=== PATIENT | male | born 1995 | race Caucasian/White ===

== ENCOUNTER 2020-11-11 15:27 | Emergency (ER) | payer MEDICAID ==
[~2020-11-11] VITALS: Ht 170.2 cm; Wt 55.3 kg
[2020-11-11 15:53] VITALS: BP 109/67
--- NOTE | 2020-11-11 15:57 | NUR ---
JASPER. HANDED ON URINE CUP.
[2020-11-11] MEDS ORDERED: NACL 0.9% 1,000 ML IV ONE (16:10)
[2020-11-11] MEDS ORDERED: MORPHINE SULFATE 4 MG/ML SYR IVP ONE ×2 (16:10→17:10)
[2020-11-11] MEDS ORDERED: ONDANSETRON 4 MG/2 ML VIAL IVP ONE (16:10)
--- NOTE | 2020-11-11 16:10 | NUR ---
US BEDSIDE WITH PT
--- NOTE | 2020-11-11 16:15 | NUR ---
Patient wheelchair assisted to bed 10 at this time.
--- NOTE | 2020-11-11 16:35 | NUR ---
25 y/o M BIB from home by mother c/c mid abdominal and RLQ pain since 10AM this morning. Patient A&Ox4, ambulatory, reports low abdominal pain, 10/10, bloating/constant, radiating to RLQ region. Patient states acute onset of pain and denies trauma, injury, fall. Patient states associated nausea and vomiting x 2 episodes today. Denies hemaemesis, loss of apetite, fever, chills, back pain, dysuria, urinary symptoms. Last BM today normal. Pt states OTC Pepto Bismo and Gas X without relief. VSS; respirations even/unlabored. Bed locked in lowest position, side rails x 1, call light in reach. PMH/Sx/Meds: Denies
--- NOTE | 2020-11-11 16:38 | NUR ---
LAB COLLECTED BEDSIDE AND GIVEN TO ADULT EDUCATION MANAGER
--- NOTE | 2020-11-11 16:52 | NUR ---
Patient reports positive relief to pain; rates pain 4/10 after Morphine IVP. Denies any nausea at this time. vamp creaser in place. RR even/unlabored. Bed locked in lowest position, side rails x 1, call light in reach.
--- NOTE | 2020-11-11 17:00 | NUR ---
Patient states pain 09/27; Dr. Mack made aware and Morphine IVP ordered.
[2020-11-11 17:05] LABS: BASOPHILS % (AUTO) 0.4 % (0.0-2.0); EOSINOPHILS % (AUTO) 0.2 % (0.0-4.0); HEMOGLOBIN 13.4 g/dL (12.0-18.0); LYMPHOCYTES # (AUTO) 0.9 K/uL (2.0-11.5); LYMPHOCYTES % (AUTO) 12.3 % (20.5-51.1); MEAN CORPUSCULAR HEMOGLOBIN 30 pg (27-31); MEAN CORPUSCULAR HGB CONC 34 g/dL (33-37); MEAN CORPUSCULAR VOLUME 88.4 fL (80-94); MONOCYTES # (AUTO) 0.5 K/uL (0.8-1.0); NEUTROPHILS # (AUTO) 5.7 K/uL (1.8-7.7); NEUTROPHILS % (AUTO) 80.1 % (42.2-75.2); PLATELET COUNT (AUTO) 288 K/uL (140-450); RED BLOOD CELL COUNT(AUTO) 4.52 MIL/uL (4.20-6.10); RED CELL DISTRIBUTION WIDTH 13.9 % (11.6-13.7); WHITE BLOOD COUNT (AUTO) 7.2 K/uL (4.8-10.8)
[2020-11-11 17:15] LABS: ANION GAP 16.2 (8-16); CARBON DIOXIDE 28.2 mmol/L (21-32); POTASSIUM 3.4 mmol/L (3.5-5.1)
--- NOTE | 2020-11-11 17:22 | NUR ---
Signature obtained for CT consent form
[2020-11-11 17:26] LABS: ALBUMIN 4.1 g/dL (3.4-5.0); TOTAL BILIRUBIN 0.4 mg/dL (0.0-1.0)
--- NOTE | 2020-11-11 17:48 | NUR ---
Patient states pain remains 7/10; no relief from Morphine 4mg IVP. Denies nausea. panel monitor in place. Bed locked in lowest position, side rails x 1. RR @ 13 even/unlabored.
--- NOTE | 2020-11-11 17:55 | NUR ---
Patient transported to CT by wheelchair.
--- NOTE | 2020-11-11 18:13 | NUR ---
Patient returned from CT by wheelchair. Placed back onto corn popper. Bed locked in lowest position, side rails x 1.
--- NOTE | 2020-11-11 19:16 | NUR ---
Report and transfer of care endorsed to SAMMY Perrin.
--- NOTE | 2020-11-11 19:25 | NUR ---
REPORT RECIEVED FROM SAMMY HERRERA FOR CONTINUITY OF CARE.
[2020-11-11] MEDS ORDERED: POLY17PD46 PO (19:29)
[2020-11-11] MEDS ORDERED: DOCU-299 PO (19:29)
[2020-11-11 19:45] VITALS: BP 108/55
--- NOTE | 2020-11-11 19:45 | NUR ---
Patient discharged with v/s stable. Written and verbal after care instructions given and explained. Patient alert, oriented and verbalized understanding of instructions. Ambulatory with steady gait. All questions addressed prior to discharge. ID band removed. Patient advised to follow up with PMD. Rx of COLACE AND MIRALAX given. Patient educated on indication of medication including possible reaction and side effects. Opportunity to ask questions provided and answered.
== END 2020-11-11 19:45 | disposition home or self-care (01) ==
LOC: MED 15:27
DX: K59.00 Constipation, unspecified (principal); R11.2 Nausea with vomiting, unspecified
CPT/HCPCS: 36415; 74177; 76705; 80053; 83605; 83690; 85025; 86140; 87040; 96361; 96374; 96375; 96376; 99285; J2270; J2405; J7030; Q9967